=== PATIENT | male | born 1990 | race African-American/Black ===

== ENCOUNTER 2017-09-25 12:30 | Emergency (ER) | payer MEDICAID ==
[2017-09-25 12:42] VITALS: PULSE 65; RESP 16; TEMP 98.6; O2SAT 97
--- NOTE | 2017-09-25 13:00 | EDPHY ---
HPI/HX/ROS/PE/MDM Narrative: CHIEF COMPLAINT: Left shoulder injury HPI: The patient is a 27 y/o male complaining of a left shoulder injury after landing on it while snowboarding yesterday. He went off of a jump and missed the landing, which resulted in him tucking in his left arm and hitting his left shoulder upon impact. No numbness, weakness, fever, chest pain, abdominal pain. REVIEW OF SYSTEMS: Aside from elements discussed in the HPI, a comprehensive 10-point review of systems was reviewed and is negative. PMH: Denies SOCIAL HISTORY: Single, employed, lives in [place] PHYSICAL EXAM: General: Patient is alert, in no acute distress. ENT: Eyes are normal to inspection. ENT inspection normal. Neck: Normal inspection. Full range of motion. Respiratory: No respiratory distress. Cardiovascular: Regular rate and rhythm. Strong peripheral pulses. Normal cap refill. Skin: Normal color. No rash. Warm and dry. Extremities: Normal appearance. Full range of motion. Left Arm: Tenderness to palpation in left AC joint. Light touch sensation and motor function is preserved in the axillary, median, radial and ulnar nerve distributions. There is a 2+ radial pulse with brisk cap refill. Neuro: Oriented x3. Normal motor function. Normal sensory function. Portions of this note were transcribed by an ED scribe. I personally performed the history, physical exam, and medical decision making; and confirm the accuracy of the information in the transcribed note. ED Course: 1315: I reviewed patient's left shoulder x-ray; there is a grade II AC separation, no fracture. Patient will be placed in a sling and referred to Dr. Tomlinson, orthopedic surgeon. 1330: Reassessed patient and discussed imaging findings. I have advised him to follow up with an orthopedic surgeon in one week if his symptoms do not improve. Return precautions provided; patient is comfortable with this plan. - Data Points Imaging Results: Imaging Impressions Shoulder X-Ray 09/25/17 12:53 Impression: Type II AC separation. Imaging: I viewed and interpreted images myself General Time Seen by Provider: 09/25/17 12:58 Initial Vital Signs: Initial Vital Signs Temperature (C) 37.0 C 09/25/17 12:40 Heart Rate 65 09/25/17 12:40 Respiratory Rate 16 09/25/17 12:40 O2 Sat (%) 97 09/25/17 12:40 O2 Delivery Mode Room Air Allergies/Adverse Reactions: No Known Allergies Allergy (Unverified 09/25/17 12:53) Home Medications: Medication Instructions Recorded NK [No Known Home Meds] 09/25/17 Departure - Departure Disposition: Home, Routine, Self-Care Clinical Impression: Shoulder separation Qualifiers: Encounter type: initial encounter Laterality: left Qualified Code(s): S43.005A - Unspecified dislocation of left shoulder joint, initial encounter Condition: Good Instructions: Shoulder Sprain (ED), Shoulder Pain (ED) Additional Instructions: Rest, ice, elevation. Follow up with an orthopedic surgeon within one week. Return to the emergency department for worsening pain, swelling, numbness, weakness or other concerns. Wear sling at all times until reevaluation, but okay to shower and sleep without sling. Use ibuprofen in addition to prescribed pain medication as directed for pain. Referrals: Tai Tomlinson MD [Medical Doctor] - As per Instructions Report Scribed for: Rivera Lynn Report Scribed by: Carrol Bell Date of Report: 09/25/17 Time of Report: 12:59
== END 2017-09-25 13:40 | disposition home or self-care (01) ==
DX: S43.102A Unspecified dislocation of left acromioclavicular joint, initial encounter (principal); V00.318A Other snowboard accident, initial encounter; Y99.8 Other external cause status; Y93.39 Activity, other involving climbing, rappelling and jumping off
CPT/HCPCS: A4565